=== PATIENT | male | born 1940 | race Caucasian/White ===

== ENCOUNTER → 2016-10-11 | Day surgery (SDC) | payer MEDICARE, BC ==
[~2016-10-11] VITALS: Ht 180.3 cm; Wt 83.2 kg
[~2016-10-11] MED LIST: ASPIRIN EC81 MG PO; CENTRUM COMPLE1 EACH PO; COZAAR50 MG PO; DESYREL100 MG PO; EFFEXOR XR150 MG PO; FLOMAX0.4 MG PO; LEVOTHROID (SY50 MCG PO; LINZESS145 MCG PO; LYRICA225 MG PO; MECLIZINE HCL25 M1 PO; MOBIC15 MG PO; NORCO 10-325 T1 EACH PO; NORCO 5-325 TA1 EACH PO; PRAVACHOL40 MG PO; PROTONIX40 MG PO; REQUIP0.5 MG PO; ULTRAM50 MG PO
--- NOTE | ~2016-10-11 | OR ---
PATIENT'S NAME: ERIBERTO MCDANIEL [facility] AGE: 76 Y [address] 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 PROCEDURES PERFORMED: Neurectomy of second intermetatarsal space in left foot. OPERATIVE SUMMARY: On 10/11/2016, this 76-year-old male was transported to the Operating Room and placed on the operating room table in supine position. Next, the local anesthesia was achieved via a field block, with direct injection into the intermetatarsal space on the left foot. Once this had been completed, a sterile draping was completed. Next, the left lower extremity was delivered on the operating room table, at which time, a pneumatic ankle tourniquet was applied to well-padded site just proximal to malleoli and roughly inflated to 250 mmHg following exsanguination by Esmarch bandage. Next, the left lower extremity was delivered on the operating room table. Sterile draping was completed and the following procedure was performed: Neurectomy of second intermetatarsal space of left foot. At this time, attention was directed towards the patient's left foot, where on preoperative evaluation, he was noted to have pain and discomfort that had failed conservative care to the second intermetatarsal space. So, at this time, an approximately 4 cm linear incision was created into the second intermetatarsal space, and went into the second interdigital space on the left foot. This incision was deepened down through the subcutaneous tissue. All coursing venous tributaries were identified, isolated, clamped, cut, and electrocoagulators were encountered. All vital neurovascular structures were gently retracted in the medial and lateral fashion. Blunt dissection was then carried down utilizing a hemostat to the level of the transverse metatarsal ligament between the second and third metatarsal head. This ligament was sharply transected to free up the tightness of this space as well as allow access to the plantar structures including the plantar proper PATIENT'S NAME: ERIBERTO MCDANIEL [facility] AGE: 76 Y [address] ROOM: [place], [place] [address] LOCATION: [facility] ADMIT DATE: 10/11/2016 OR/Procedure Report DISCHARGE DATE: FAMILY PHYSICIAN: Rufino García MD ATTENDING PHYSICIAN: Jovany Gupta digital nerve. Once the ligament had been transected and metatarsals were retracted, the plantar digital nerve was identified and noted to be enlarged into the area between the metatarsal heads. This was then clamped proximally and distally into its branches, and sharply transected utilizing a Estevez scissor. The hypertrophied nerve was then removed and tied up from the surgical site, and sent to Pathology for both gross and microscopic examination. Being satisfied that it had been removed in total, attention was directed towards closure. The wound was flushed with copious amounts of sterile saline. Next, the deep tissues were reapproximated utilizing 4-0 Vicryl in a simple interrupted fashion. A 4-0 Vicryl retention stitch was placed to the subcutaneous tissues. The skin edges were then reapproximated using 5-0 Vicryl in running subcuticular fashion. Being satisfied with this, attention was then directed towards bandaging. WOUND CLOSURE: The incision was reinforced utilizing 0.50-inch Steri-Strips and tincture of benzoin. Next, a dressing consisting of Adaptic, sterile 4x4's, Kerlix, Maren, and Coban was applied in mild compressive and corrective fashion to the patient's left foot. The previously applied pneumatic ankle tourniquet was wrapped and deflated, and spontaneous capillary refill time was noted in digits 1 through 5 of the patient's left foot. POSTOPERATIVE CONDITION: The patient left the Operating Room in good condition with vital signs stable. PLAN: He was returned to the holding area for further monitoring prior to discharge. JOVANY GUPTA DPM PDM/modl /[id number] d: t: 10/11/16 2331, OPERATIVE SUMMARY
== END | disposition disaster alternative care site (69) ==
LOC: GPOC 10-09 11:00 → GSDC 07:39 → GPOC 08:00
PROC: 01BG0ZZ Excision of Tibial Nerve, Open Approach (ICD-10-PCS; principal; 2016-10-11)
DX: G57.82 Other specified mononeuropathies of left lower limb (principal); M19.90 Unspecified osteoarthritis, unspecified site; E03.9 Hypothyroidism, unspecified; N18.2 Chronic kidney disease, stage 2 (mild); F32.9 Major depressive disorder, single episode, unspecified; I25.10 Atherosclerotic heart disease of native coronary artery without angina pectoris; F41.9 Anxiety disorder, unspecified; Z86.73 Personal history of transient ischemic attack (TIA), and cerebral infarction without residual deficits; J44.9 Chronic obstructive pulmonary disease, unspecified; G47.33 Obstructive sleep apnea (adult) (pediatric); E78.5 Hyperlipidemia, unspecified; Z90.49 Acquired absence of other specified parts of digestive tract; Z98.890 Other specified postprocedural states; Z98.49 Cataract extraction status, unspecified eye; Z79.82 Long term (current) use of aspirin; Z79.899 Other long term (current) drug therapy
CPT/HCPCS: J2001; J7030